=== PATIENT | male | born 1970 | race Caucasian/White ===

== ENCOUNTER 2018-06-09 06:34 | Emergency (ER) | payer OTHER ==
[~2018-06-09] VITALS: Ht 180.3 cm; Wt 140.6 kg
[2018-06-09] MEDS ORDERED: BACTRIM DS TAB1 EACH PO (07:45)
[2018-06-09] MEDS ORDERED: NORCO 5-325 TA1 EACH PO (07:45)
[2018-06-09 07:58] VITALS: BP 145/92
[2018-06-10] MEDS ORDERED: QUETIAPINE FUM100 MG PO (07:12)
[2018-06-10] MEDS ORDERED: TRICOR145 MG PO (07:12)
[2018-06-10] MEDS ORDERED: METFORMIN HCL500 MG PO (07:12)
[2018-06-10] MEDS ORDERED: REMERON15 MG PO (07:12)
[2018-06-10] MEDS ORDERED: CLONIDINE HCL0.3 M3 PO (07:12)
[2018-06-10] MEDS ORDERED: ABILIFY20 MG PO (07:13)
== END 2018-06-09 07:59 | disposition home or self-care (01) ==
LOC: ER 06:34
DX: L02.213 Cutaneous abscess of chest wall (principal)

== ENCOUNTER 2018-06-10 06:48 | Emergency (ER) | payer OTHER ==
[~2018-06-10] VITALS: Ht 180.3 cm; Wt 140.6 kg
[~2018-06-10 06:48] MED LIST: BACTRIM DS TAB1 EACH PO; NORCO 5-325 TA1 EACH PO
[2018-06-10] MEDS ORDERED: METFORMIN HCL500 MG PO (07:12)
[2018-06-10] MEDS ORDERED: TRICOR145 MG PO (07:12)
[2018-06-10] MEDS ORDERED: REMERON15 MG PO (07:12)
[2018-06-10] MEDS ORDERED: CLONIDINE HCL0.3 M3 PO (07:12)
[2018-06-10] MEDS ORDERED: QUETIAPINE FUM100 MG PO (07:12)
[2018-06-10] MEDS ORDERED: ABILIFY20 MG PO (07:13)
[2018-06-10 07:15] VITALS: BP 168/87
== END 2018-06-10 07:19 | disposition home or self-care (01) ==
LOC: ER 06:48
DX: L02.213 Cutaneous abscess of chest wall (principal); I10 Essential (primary) hypertension; E11.9 Type 2 diabetes mellitus without complications; F31.9 Bipolar disorder, unspecified